=== PATIENT | male | born 1990 | race Hispanic/Latino ===

== ENCOUNTER 2025-01-17 17:30 | Emergency (ER) | payer OTHER ==
[2025-01-17] MEDS ORDERED: Ciprofloxacin 500 MG TAB ONE (18:13)
== END 2025-01-17 18:33 | disposition home or self-care (01) ==
LOC: CSHERS 17:30
DX: S91.132A Puncture wound without foreign body of left great toe without damage to nail, initial encounter (principal); Y93.01 Activity, walking, marching and hiking; W45.0XXA Nail entering through skin, initial encounter
CPT/HCPCS: 90471; 90715